=== PATIENT | male | born 1960 | race American Indian/Alaskan Native ===

== ENCOUNTER 2021-09-26 18:13 | Emergency (ER) | payer MEDICARE ==
[2021-09-26 18:42] VITALS: BP 130/62
[2021-09-26 20:44] LABS: Basophils # (Auto) 0.1 K/mm3 (0.0-0.1); Basophils % (Auto) 0.9 % (0.0-1.8); Eosinophils % (Auto) 0.2 % (0.0-4.3); Hematocrit 39.1 % (35.5-45.6); Hemoglobin 12.7 gm/dl (11.8-15.2); Lymphocytes # (Auto) 0.7 K/mm3 (1.2-5.4); Lymphocytes % (Auto) 11.2 % (13.4-35.0); Mean Corpuscular HGB Conc 32 % (32-34); Mean Corpuscular Volume 97 fl (84-94); Monocytes # (Auto) 0.9 K/mm3 (0.0-0.8); Monocytes % (Auto) 13.8 % (0.0-7.3); Platelet Count 158 K/mm3 (140-440); Red Blood Count 4.02 M/mm3 (3.65-5.03); Red Cell Distribution Width 13.6 % (13.2-15.2)
[2021-09-26 21:06] LABS: BUN/Creatinine Ratio 16; Blood Urea Nitrogen 16 mg/dL (9-20); Calcium 9.1 mg/dL (8.4-10.2); Hemolysis Index 17
--- NOTE | 2021-09-26 21:29 | Cat Scan Report ---
CT BRAIN: 09/26/2021 INDICATION / CLINICAL INFORMATION: Lightheadedness/Dizziness. COMPARISON: None available. FINDINGS: BRAIN/INTRACRANIAL STRUCTURES: Unenhanced CT images of the brain demonstrate no evidence of acute abn ormality. Ventricles and sulci are prominent in size, consistent with prominent diffuse cerebral atrophy, more than is typically seen in a patient of this age. Chronic white matter hypoattenuation is present throughout the cerebral hemispheric white matter. There is no evidence of acute large vessel territory ischemic injury, hemorrhage, or mass. There are no abnormal extra-axial fluid collections. EXTRACRANIAL STRUCTURES: Unremarkable. IMPRESSION: No acute abnormality. Prominent diffuse cerebral atrophy. All CT scans at this location are performed using dose reduction to ALARA by means of automated expos ure control. Signer Name: Bradford Doshi MD Signed: 09/26/2021 9:24 PM Workstation Name: [id number]
--- NOTE | 2021-09-26 21:36 | XRay Report ---
CHEST 1 VIEW INDICATION / CLINICAL INFORMATION: Lightheadedness/Dizziness. COMPARISON: None available. FINDINGS: SUPPORT DEVICES: None. HEART / MEDIASTINUM: No significant abnormality. LUNGS / PLEURA: No significant pulmonary or pleural abnormality. No pneumothorax. ADDITIONAL FINDINGS: No significant additional findings. IMPRESSION: 1. No acute findings. Signer Name: Sacha Mike MD Signed: 09/26/2021 9:32 PM Workstation Name: [email or web address]
--- NOTE | 2021-09-26 21:57 | Emergency Department Report ---
ED Dizziness HPI - General Chief Complaint: Dizziness Stated Complaint: DIZZY Time Seen by Provider: 09/26/21 19:53 Source: patient, EMS Mode of arrival: Stretcher Limitations: No Limitations - History of Present Illness Initial Comments: Patient is 61 years old male with no significant past medical history. Patient brought to the emergency room via EMS from home for evaluation of sudden onset of dizziness. Patient stated that symptoms started when he was fixing his bed. Patient stated that symptoms completely resolved now. He denied any weakness, numbness or tingling sensation. Patient also denied any nausea or vomiting. No ataxia or visual changes. Patient stated that he is back to normal now. MD Complaint: dizziness -: This evening Timing: sudden onset Description: sense of movement History of Same: No History of Trauma: No Severity: mild Improves With: remaining still Worsens With: movement Associated Symptoms: denies other symptoms - Related Data Allergies Allergy/AdvReac Type Severity Reaction Status Date / Time No Known Allergies Allergy Verified 09/26/21 18:42 ED Review of Systems ROS: Stated complaint: DIZZY Other details as noted in HPI Comment: All other systems reviewed and negative Constitutional: denies: chills, fever Respiratory: denies: cough, shortness of breath, SOB with exertion, SOB at rest Gastrointestinal: denies: abdominal pain, nausea, vomiting Neurological: vertigo ED Physical Exam - General Limitations: No Limitations General appearance: alert, in no apparent distress - Head Head exam: Present: atraumatic, normocephalic, normal inspection - Eye Eye exam: Present: normal appearance, PERRL - ENT ENT exam: Present: normal exam, normal orophraynx, mucous membranes moist - Neck Neck exam: Present: normal inspection, full ROM. Absent: tenderness, meningismus - Respiratory Respiratory exam: Present: normal lung sounds bilaterally - Cardiovascular Cardiovascular Exam: Present: regular rate, normal rhythm, normal heart sounds - GI/Abdominal GI/Abdominal exam: Present: soft, normal bowel sounds. Absent: distended, tenderness, guarding, rebound, rigid, organomegaly, mass, bruit, pulsatile mass, hernia - Extremities Exam Extremities exam: Present: normal inspection, full ROM, normal capillary refill. Absent: tenderness, pedal edema, joint swelling, calf tenderness - Back Exam Back exam: Present: normal inspection, full ROM. Absent: CVA tenderness (R), CVA tenderness (L) - Neurological Exam Neurological exam: Present: alert, oriented X3, CN II-XII intact, normal gait, reflexes normal. Absent: motor sensory deficit - Psychiatric Psychiatric exam: Present: normal mood - Skin Skin exam: Present: warm, intact, normal color ED Course Vital Signs 09/26/21 18:39 Temperature 97.9 F Pulse Rate 86 Respiratory 14 Rate Blood Pressure 130/62 [Left] O2 Sat by Pulse 98 Oximetry ED Medical Decision Making - Lab Data Result diagrams: 09/26/21 20:22 09/26/21 20:22 - EKG Data -: EKG Interpreted by Ca EKG shows normal: sinus rhythm Rate: normal - EKG Data Interpretation: no acute changes - Radiology Data Radiology results: report reviewed - Medical Decision Making Patient is 61 years old male with no significant past medical history. Patient brought to the emergency room via EMS from home for evaluation of sudden onset o f dizziness. Patient stated that symptoms started when he was fixing his bed. Patient stated that symptoms completely resolved now. He denied any weakness, numbness or tingling sensation. Patient also denied any nausea or vomiting. No ataxia or visual changes. Patient stated that he is back to normal now. EKG is unremarkable. Chest x-ray is negative for acute finding. CT brain is unremarkable. Labs reviewed and showed no acute abnormalities. Patient stated that his symptoms completely resolved. No clinical evidence of posterior circulation. Patient advised to follow-up with his primary care physician in the next 2 to 3 days and to return to the ER if he develop any new symptoms Critical care attestation.: If time is entered above; I have spent that time in minutes in the direct care of this critically ill patient, excluding procedure time. ED Disposition Clinical Impression: Dizziness Disposition: 01 HOME / SELF CARE / HOMELESS Is pt being admited?: No Condition: Stable Referrals: PRIMARY CARE, [Primary Care Provider] - 3-5 Days
== END 2021-09-27 00:39 | disposition home or self-care (01) ==
LOC: ED 18:13
DX: R42 Dizziness and giddiness (principal)
CPT/HCPCS: 36415; 70450; 71045; 80048; 82140; 84484; 85025; 99284